=== PATIENT | male | born 1945 | race African-American/Black ===

== ENCOUNTER 2021-02-05 20:10 | Emergency (ER) | payer MEDICARE ==
[~2021-02-05] VITALS: Wt 57.1 kg
[2021-02-05 23:05] LABS: URINE BILIRUBIN NEGATIVE (Negative); URINE BLOOD 3+ (Negative); URINE CLARITY SL CLOUDY; URINE COLOR YELLOW; URINE GLUCOSE-RANDOM NEGATIVE (Negative); URINE KETONES NEGATIVE (Negative); URINE NITRITE-REFLEX NEGATIVE (Negative); URINE PROTEIN 1+ (Negative); URINE SPECIFIC GRAVITY 1.015 (1.005-1.030); URINE UROBILINOGEN 0.2 E.U./dl (0.2-1.0)
[2021-02-05 23:07] LABS: URINE LEUKOCYTES-REFLEX 2+ (Negative)
[2021-02-05 23:26] LABS: SQUAMOUS 4-10 Moderate /LPF (0-3)
[2021-02-05 23:27] LABS: BACTERIA-REFLEX >30 Many /HPF (None Seen); CASTS None Seen /LPF (None Seen); CRYSTALS None Seen /LPF (None Seen); URINE RBC >20 Many /HPF (0-2)
[2021-02-06 01:11] VITALS: BP 103/68
== END 2021-02-06 01:13 | disposition home or self-care (01) ==
LOC: EDBD 20:10 → M.ERS 20:10
PROVIDERS: Personal Emergency Response Attendant
DX: R33.9 Retention of urine, unspecified (principal); Z85.46 Personal history of malignant neoplasm of prostate